=== PATIENT | female | born 1970 | race Caucasian/White ===

== ENCOUNTER 2022-05-12 | Outpatient (REF) | payer OTHER, SELFPAY ==
[2022-05-13 13:06] LABS: Influenza A PCR NEGATIVE (Negative); Influenza B PCR NEGATIVE (Negative); Resp Syncy Virus RNA Qual PCR NEGATIVE (Negative); SARS COV2 PCR INHOUSE NEGATIVE (Negative)
== END 2022-05-12 00:01 | disposition home or self-care (01) ==
LOC: HO.LNP
PROVIDERS: Visit Provider Nurse Practitioner Family
DX: H10.9 Unspecified conjunctivitis (principal); Z20.822 Contact with and (suspected) exposure to COVID-19
CPT/HCPCS: 0241U

== ENCOUNTER 2023-04-07 13:36 | Outpatient (AMB) | payer OTHER, SELFPAY ==
--- NOTE | 2023-04-07 14:40 | AM.OFFWIN_ITS ---
Intake Vital Signs 04/07/23 14:41 Height 5 ft 2 in Weight 232 lb BMI 42.4 BP 132/86 Blood Pressure Location Lt brachial Position Sitting Pulse 81 Pulse Source Pulse Oximeter Temp 98.1 F Temp Source Oral Pulse Oximetry (%) 97 Oxygen Delivery Method Room Air Intake Visit Reasons: EST/not feeling well(lobby masked) Intake Note: pt started feeling nausea and diarrhea since Thursday pt says she is more tired then normal Allergies No Known Allergies Allergy (Unverified 04/07/23 15:03) Medication List - Last Reconciled 04/07/23 by Segundo Gaytan MD pantoprazole 40 mg PO DAILY Do you need a note to return to daycare/school/sports/work: Yes HPI EST/not feeling well(lobby masked) HPI Details 53-year-old female presents to the [facility] for a sick visit. Patient is reporting symptoms of nausea, occasional diarrhea and stomach discomfort for the past few days. No fevers or chills. No family members sick. Symptoms started after she ate a bad crystal flat grinder. Physical Exam Vital Signs: Last Vital Signs Temp 98.1 F 04/07/23 14:41 Pulse 81 04/07/23 14:41 BP 132/86 04/07/23 14:41 Pulse Ox 97 04/07/23 14:41 Oxygen Delivery Method Room Air 04/07/23 14:41 BMI result Body Mass Index 42.4 Const General: cooperative and healthy appearing Nutritional Appearance: well nourished Orientation/consciousness: patient oriented x3 Limitations: no limitations HEENT Head: Yes normal to inspection Eyes General: appearance normal, both eyes and all related structures Neck Neck: Yes normal visual inspection Chest Chest palpation & inspection: normal palpation of entire chest wall Resp Effort & Inspection: normal respiratory effort Neuro General: patient oriented x3 Assessment & Plan Assessment & Plan (1) Acute abdominal pain: Code(s): R10.9 - Unspecified abdominal pain Plan: Small was mostly due to gastroenteritis. Self-limiting illness. Ppi called in. Note for work given. Medications: New pantoprazole 40 mg PO DAILY 30 tabs 0RF Coding Level of Care Code Est Pt Level 3 (27973) Diagnoses Acute abdominal pain R10.9
[2023-04-07 14:41] VITALS: BP 132/86; PULSE 81; TEMP 36.7; O2SAT 97; BMI 42.4
== END 2023-04-07 15:38 | disposition home or self-care (01) ==
PROVIDERS: Visit Provider Internal Medicine
DX: R10.9 Unspecified abdominal pain (principal)
CPT/HCPCS: 99213